=== PATIENT | female | born 1960 | race Caucasian/White ===

== ENCOUNTER 2016-07-06 20:10 | Inpatient (IN) | payer OTHER ==
[~2016-07-06] VITALS: Ht 170.2 cm; Wt 62.0 kg
[~2016-07-06 20:10] MED LIST: ALPRAZOLAM0.25 M2 PO; ANUSOL-HC21 GM PR; ATIVAN0.5 MG PO; AUGMENTIN875 MG PO; BENTYL20 MG PO; CARAFATE1 GM PO; CHILDREN'S160 MG/15 PO; CHILDREN'S160 MG/21 PO; CIPRO250 MG/5 M PO; CIPRO500 MG PO; CIPROFLOXA250 MG/5 M PO; DIOVAN40 MG PO; ENDOCET 5-3251 EACH PO; FLAGYL500 MG PO; FLORASTOR250 M1 PO; FLORASTOR250 MG PO; GOLYTELY SOLU4000 ML PO; LISINOPRIL10 MG PO; MEGACE 40 MG40 MG/ML PO; MIRALAX255 GM PO; MORPHINE CON20 MG/M1 PO; NICOTINE PATCH1 EAC2 TD; ONDANSETRON ODT4 MG PO; PRAVASTATIN SOD20 MG PO; PRAVASTATIN SOD40 MG PO; PREVACID SOLUTA30 MG PO; PROMETHAZINE HC25 M1 PO; REGLAN10 MG PO; VANCOCIN 250 M250 MG PO; VANCOMYCIN125 MG/2.5 PO; ZANTAC300 MG PO; ZOFRAN ODT4 MG PO; ZOFRAN4 MG PO
[2016-07-06 20:35] LABS: HEMATOCRIT 39.6 % (36.0-46.0); MCH 30.2 PG (29.0-34.0); MCHC 33.8 G/DL (30.0-36.0); MCV 89.4 FL (83-99); MEAN PLAT.VOLUME 10.7 uM^3 (9.5-12.4); PLATELET COUNT 139 K/uL (156-360); RBC DIS.WIDTH-CV 11.8 % (11.8-14.6); RBC DIS.WIDTH-SD 38.4 % (39-53); RED BLOOD COUNT 4.43 M/uL (3.80-5.20); WHITE BLOOD COUNT 8.4 K/uL (4.1-10.2)
[2016-07-06 20:47] LABS: CHLORIDE 104 mEq/L (99-109); POTASSIUM 3.7 mEq/L (3.7-5.4); SODIUM 138 mEq/L (136-147)
[2016-07-06 20:49] LABS: GLUCOSE 102 mg/dL (70-99)
[2016-07-06 20:50] LABS: ANION GAP 10 MEQ/L (2-14)
[2016-07-06 20:51] LABS: TOTAL BILIRUBIN 0.9 mg/dL (0.0-1.0)
[2016-07-06 20:52] LABS: ALKALINE PHOSPHATASE 65 IU/L (3-129)
[2016-07-06 20:53] LABS: GFR ESTIMATE (CALCULATED) > 59 mL/min/
[2016-07-06 20:54] LABS: UREA NITROGEN (BUN) 5 mg/dL (9-23)
[2016-07-06 22:05] LABS: PROTHROMBIN TIME 10.1 (9.2-11.2); PTT 36.4 (25-32)
[2016-07-06 22:15] LABS: ADD MIUA? YES; BILIRUBIN NEGATIVE; BLOOD MODERATE; COLOR STRAW ((YELLOW)); GLUCOSE (STRIP) NEGATIVE; KETONES 5; LEUKOCYTES TRACE; NITRITE NEGATIVE; PROTEIN (STRIP) NEGATIVE; SPECIFIC GRAVITY 1.004 (1.000-1.030); UROBILINOGEN 0.2 MG/DL (0.2-1.0)
[2016-07-06 22:30] LABS: BACTERIA RARE /HPF; EPITHELIAL CELLS NONE SEEN /HPF; MUCUS TRACE /LPF; RED BLOOD CELLS 0-5 /HPF (0-5); UCUL ADDED? NO; WHITE BLOOD CELLS 0-5 /HPF (0-5)
[2016-07-07] MEDS ORDERED: CRESTOR5 MG PO (00:40)
[2016-07-07] MEDS ORDERED: MIRALAX255 GM PO (00:40)
[2016-07-07 04:23] VITALS: BP 117/56
[2016-07-07 07:05] VITALS: BP 99/57
[2016-07-07 08:13] LABS: HDL CHOLESTEROL 38 MG/DL (Desirable>=50); LDL CHOLESTEROL 100 mg/dL (Desirable<100); LIPASE 6 U/L (1.0-51.0); NON-HDL CHOLESTEROL 113 mg/dL (Desirable<160); TOTAL CHOLESTEROL 151 mg/dL (Desirable<200); TRIGLYCERIDES 65 MG/DL (Normal: <150)
[2016-07-07 11:15] VITALS: BP 101/67
[2016-07-07 12:35] VITALS: BP 178/94
[2016-07-07 12:43] LABS: C DIFF TOXIN POSITIVE (NEGATIVE); PROBE CHECK PASS
[2016-07-07 12:46] LABS: INTERNAL CONTROL VALID? YES
[2016-07-07 16:30] VITALS: BP 104/62
[2016-07-07 19:00] VITALS: BP 108/59
[2016-07-08 00:38] VITALS: BP 121/67
[2016-07-08 03:15] VITALS: BP 148/91
[2016-07-08 04:55] VITALS: BP 122/68
[2016-07-08 07:00] VITALS: BP 121/58
[2016-07-08 07:20] LABS: HEMATOCRIT 34.3 % (36.0-46.0); MCHC 32.9 G/DL (30.0-36.0); MEAN PLAT.VOLUME 11.1 uM^3 (9.5-12.4); PLATELET COUNT 125 K/uL (156-360); RBC DIS.WIDTH-CV 11.9 % (11.8-14.6); RBC DIS.WIDTH-SD 39.4 % (39-53); RED BLOOD COUNT 3.77 M/uL (3.80-5.20)
[2016-07-08 07:33] LABS: ALKALINE PHOSPHATASE 49 IU/L (3-129); ANION GAP 7 MEQ/L (2-14); CHLORIDE 107 MEQ/L (99-109); GFR ESTIMATE (CALCULATED) > 59 mL/min/; GLUCOSE 73 mg/dL (70-99); POTASSIUM 3.8 MEQ/L (3.7-5.4); SAMPLE HEMOLYSIS CHECK 0; SAMPLE ICTERIC CHECK 0; SAMPLE LIPEMIA CHECK 0; SODIUM 139 MEQ/L (136-147); TOTAL BILIRUBIN 0.6 MG/DL (0.0-1.0); UREA NITROGEN (BUN) 7 mg/dL (9-23)
[2016-07-08 15:35] VITALS: BP 102/62
[2016-07-08 23:45] VITALS: BP 132/62
[2016-07-09 08:08] LABS: HEMATOCRIT 35.7 % (36.0-46.0); MCH 30.3 PG (29.0-34.0); MCHC 33.9 G/DL (30.0-36.0); MCV 89.5 FL (83-99); PLATELET COUNT 120 K/uL (156-360); RBC DIS.WIDTH-CV 11.6 % (11.8-14.6); RBC DIS.WIDTH-SD 37.6 % (39-53); RED BLOOD COUNT 3.99 M/uL (3.80-5.20); WHITE BLOOD COUNT 6.4 K/uL (4.1-10.2)
[2016-07-09 08:20] LABS: CHLORIDE 104 mEq/L (99-109); POTASSIUM 3.4 mEq/L (3.7-5.4); SODIUM 140 mEq/L (136-147)
[2016-07-09 08:23] LABS: ANION GAP 10 MEQ/L (2-14); GLUCOSE 102 mg/dL (70-99)
[2016-07-09 08:25] LABS: GFR ESTIMATE (CALCULATED) > 59 mL/min/
[2016-07-09 08:26] LABS: UREA NITROGEN (BUN) 4 mg/dL (9-23)
[2016-07-09 08:44] VITALS: BP 127/69
[2016-07-09 16:47] VITALS: BP 139/63
[2016-07-10 02:46] VITALS: BP 132/68
[2016-07-10 07:46] VITALS: BP 134/62
[2016-07-10 10:54] LABS: ANION GAP 10 MEQ/L (2-14); CHLORIDE 102 MEQ/L (99-109); GFR ESTIMATE (CALCULATED) > 59 mL/min/; GLUCOSE 100 mg/dL (70-99); POTASSIUM 3.2 MEQ/L (3.7-5.4); SAMPLE HEMOLYSIS CHECK 0; SAMPLE ICTERIC CHECK 0; SAMPLE LIPEMIA CHECK 0; SODIUM 138 MEQ/L (136-147); UREA NITROGEN (BUN) 3 mg/dL (9-23)
[2016-07-10 15:35] VITALS: BP 130/61
[2016-07-11 00:53] VITALS: BP 128/78
[2016-07-11 07:38] VITALS: BP 108/58
[2016-07-11 08:02] LABS: HEMATOCRIT 32.7 % (36.0-46.0); MCH 31.1 PG (29.0-34.0); MCHC 34.9 G/DL (30.0-36.0); MCV 89.3 FL (83-99); MEAN PLAT.VOLUME 10.6 uM^3 (9.5-12.4); PLATELET COUNT 111 K/uL (156-360); RBC DIS.WIDTH-CV 11.8 % (11.8-14.6); RED BLOOD COUNT 3.66 M/uL (3.80-5.20)
[2016-07-11 08:03] LABS: WHITE BLOOD COUNT 3.2 K/uL (4.1-10.2)
[2016-07-11 08:38] LABS: ANION GAP 6 MEQ/L (2-14); CHLORIDE 106 MEQ/L (99-109); GFR ESTIMATE (CALCULATED) > 59 mL/min/; GLUCOSE 120 mg/dL (70-99); POTASSIUM 3.2 MEQ/L (3.7-5.4); SAMPLE HEMOLYSIS CHECK 0; SAMPLE ICTERIC CHECK 0; SAMPLE LIPEMIA CHECK 0; SODIUM 140 MEQ/L (136-147); UREA NITROGEN (BUN) 2 mg/dL (9-23)
[2016-07-11 16:39] VITALS: BP 100/62
[2016-07-11 23:11] VITALS: BP 147/70
[2016-07-12 06:44] LABS: HEMATOCRIT 33.1 % (36.0-46.0); MCH 30.2 PG (29.0-34.0); MCHC 33.8 G/DL (30.0-36.0); MCV 89.2 FL (83-99); MEAN PLAT.VOLUME 10.3 uM^3 (9.5-12.4); PLATELET COUNT 117 K/uL (156-360); RBC DIS.WIDTH-CV 11.7 % (11.8-14.6); RED BLOOD COUNT 3.71 M/uL (3.80-5.20)
[2016-07-12 07:08] VITALS: BP 134/62
[2016-07-12 07:13] LABS: ANION GAP 7 MEQ/L (2-14); CHLORIDE 108 MEQ/L (99-109); GFR ESTIMATE (CALCULATED) > 59 mL/min/; GLUCOSE 107 mg/dL (70-99); POTASSIUM 3.4 MEQ/L (3.7-5.4); SAMPLE HEMOLYSIS CHECK 0; SAMPLE ICTERIC CHECK 0; SAMPLE LIPEMIA CHECK 0; SODIUM 143 MEQ/L (136-147); UREA NITROGEN (BUN) 2 mg/dL (9-23)
[2016-07-12] MEDS ORDERED: FLAGYL500 MG PO (14:23)
[2016-07-12] MEDS ORDERED: VANCOMYCIN125 MG/2.5 PO (14:25)
[2016-07-12] MEDS ORDERED: ZOFRAN4 MG PO (14:27)
[2016-07-12] MEDS ORDERED: REGLAN10 MG PO (14:27)
[2016-07-12 14:30] VITALS: BP 120/78
[2016-07-12] MEDS ORDERED: POTASSIUM20 MEQ/11 PO (14:31)
== END 2016-07-12 15:40 | disposition home or self-care (01) | DRG 392 ==
LOC: EME 20:10 → 2EAST 07-07 02:30 → EDOF 07-07 02:30 → 2EAST 07-07 04:09
PROVIDERS: Emergency Medicine; Internal Medicine; Nurse Practitioner Adult Health
DX: K57.92 Diverticulitis of intestine, part unspecified, without perforation or abscess without bleeding (principal); A04.7 Enterocolitis due to Clostridium difficile; F41.9 Anxiety disorder, unspecified; J44.9 Chronic obstructive pulmonary disease, unspecified; I10 Essential (primary) hypertension; E78.5 Hyperlipidemia, unspecified; F17.210 Nicotine dependence, cigarettes, uncomplicated; D69.6 Thrombocytopenia, unspecified; Z88.6 Allergy status to analgesic agent; Z71.6 Tobacco abuse counseling; N39.0 Urinary tract infection, site not specified; R10.9 Unspecified abdominal pain; R19.5 Other fecal abnormalities; R19.7 Diarrhea, unspecified
CPT/HCPCS: 74176; 74177; 76705; 80048; 80053; 80061; 81003; 83605; 83630; 83690; 85027; 85610; 85730; 86900; 86901; 87077; 87086; 87186; 87493; 99202; 99281; 99285; J0696; J2060; J2270; J2405; J2543; J2765; J7030; J7042; J7050; S0028; S0030

== ENCOUNTER 2016-08-22 22:27 | Inpatient (IN) | payer OTHER ==
[~2016-08-22] VITALS: Ht 170.2 cm; Wt 60.4 kg
[~2016-08-22 22:27] MED LIST changes: +CRESTOR5 MG PO; +POTASSIUM20 MEQ/11 PO
[2016-08-23] LABS: HEMATOCRIT 40.7 % (36.0-46.0); MCH 30.3 PG (29.0-34.0); MCHC 34.9 G/DL (30.0-36.0); MEAN PLAT.VOLUME 10.9 uM^3 (9.5-12.4); PLATELET COUNT 119 K/uL (156-360); RBC DIS.WIDTH-CV 12.1 % (11.8-14.6); RBC DIS.WIDTH-SD 38.5 % (39-53); RED BLOOD COUNT 4.68 M/uL (3.80-5.20); WHITE BLOOD COUNT 8.8 K/uL (4.1-10.2)
[2016-08-23 00:10] LABS: CHLORIDE 99 mEq/L (99-109); POTASSIUM 3.7 mEq/L (3.7-5.4); SODIUM 132 mEq/L (136-147)
[2016-08-23 00:13] LABS: GLUCOSE 134 mg/dL (70-99)
[2016-08-23 00:14] LABS: ANION GAP 9 MEQ/L (2-14); TOTAL BILIRUBIN 1.2 mg/dL (0.0-1.0)
[2016-08-23 00:16] LABS: ALKALINE PHOSPHATASE 53 IU/L (3-129); GFR ESTIMATE (CALCULATED) > 59 mL/min/
[2016-08-23 00:17] LABS: UREA NITROGEN (BUN) 7 mg/dL (9-23)
[2016-08-23 01:02] LABS: ADD MIUA? YES; BILIRUBIN NEGATIVE; BLOOD MODERATE; COLOR AMBER ((YELLOW)); GLUCOSE (STRIP) NEGATIVE; KETONES 5; LEUKOCYTES NEGATIVE; NITRITE NEGATIVE; PROTEIN (STRIP) 30; SPECIFIC GRAVITY 1.021 (1.000-1.030); UROBILINOGEN 0.2 MG/DL (0.2-1.0)
[2016-08-23 01:11] LABS: BACTERIA RARE /HPF; EPITHELIAL CELLS RARE /HPF; HYALINE CASTS 0-5 /LPF; MUCUS TRACE /LPF; RED BLOOD CELLS 20-30 /HPF (0-5); UCUL ADDED? NO; WHITE BLOOD CELLS 0-5 /HPF (0-5)
[2016-08-23 05:09] VITALS: BP 111/56
[2016-08-23 07:30] VITALS: BP 122/54
[2016-08-23 10:05] LABS: C DIFF TOXIN POSITIVE (NEGATIVE)
[2016-08-23 10:15] LABS: PROBE CHECK PASS
[2016-08-23 12:11] VITALS: BP 115/58
[2016-08-23 16:57] VITALS: BP 115/66
[2016-08-23 19:22] VITALS: BP 112/63
[2016-08-23 23:40] VITALS: BP 103/59
[2016-08-24 02:52] VITALS: BP 125/66
[2016-08-24 07:05] VITALS: BP 121/63
[2016-08-24 07:17] LABS: INTER. NORMALIZED RATIO 1.1; PROTHROMBIN TIME 10.7 (9.2-11.2); PTT 33.5 (25-32)
[2016-08-24 07:25] LABS: HEMATOCRIT 37.3 % (36.0-46.0); MCH 29.2 PG (29.0-34.0); MCV 88.6 FL (83-99); MEAN PLAT.VOLUME 10.9 uM^3 (9.5-12.4); PLATELET COUNT 114 K/uL (156-360); RBC DIS.WIDTH-CV 12.4 % (11.8-14.6); RBC DIS.WIDTH-SD 40.5 % (39-53); RED BLOOD COUNT 4.21 M/uL (3.80-5.20); WHITE BLOOD COUNT 3.6 K/uL (4.1-10.2)
[2016-08-24 07:27] LABS: ANION GAP 7 MEQ/L (2-14); CHLORIDE 104 MEQ/L (99-109); GFR ESTIMATE (CALCULATED) > 59 mL/min/; GLUCOSE 110 mg/dL (70-99); MAGNESIUM 1.8 mg/dl (1.3-2.7); POTASSIUM 3.2 MEQ/L (3.7-5.4); SAMPLE HEMOLYSIS CHECK 0; SAMPLE ICTERIC CHECK 0; SAMPLE LIPEMIA CHECK 0; SODIUM 137 MEQ/L (136-147); UREA NITROGEN (BUN) 9 mg/dL (9-23)
[2016-08-24 08:40] LABS: ABS NEUTROPHIL COUNT 2.5; BAND NEUTROPHILS 36.1 % (0-8.0); BASOPHILS 0.9 %; EOSINOPHIL ABS CT 0.1; EOSINOPHILS 2.7 % (0-5.0); INSTRUMENT ABS NEUTROPHIL CT 2.4 K/uL; LYMPHOCYTES 20.7 % (15.0-45.0); MYELOCYTES 1.8 %; NUCLEATED RBC'S 0.9; PLAT.SUFFICIENCY DECREASED; POIKILOCYTOSIS 1+; SEG.NEUTROPHILS 32.4 % (46.0-76.0)
[2016-08-24 11:25] VITALS: BP 115/61
[2016-08-24 15:45] VITALS: BP 122/67
[2016-08-24 15:49] LABS: ADD MIUA? YES; BILIRUBIN NEGATIVE; BLOOD LARGE; COLOR YELLOW ((YELLOW)); GLUCOSE (STRIP) NEGATIVE; KETONES NEGATIVE; LEUKOCYTES NEGATIVE; NITRITE NEGATIVE; PROTEIN (STRIP) NEGATIVE; SPECIFIC GRAVITY 1.003 (1.000-1.030); UROBILINOGEN 0.2 MG/DL (0.2-1.0)
[2016-08-24 15:56] LABS: BACTERIA RARE /HPF; EPITHELIAL CELLS RARE /HPF; HYALINE CASTS 0-5 /LPF; MUCUS TRACE /LPF; RED BLOOD CELLS 0-5 /HPF (0-5); UCUL ADDED? NO; WHITE BLOOD CELLS 0-5 /HPF (0-5)
[2016-08-24 23:10] VITALS: BP 116/67
[2016-08-25 08:05] LABS: HEMATOCRIT 35.2 % (36.0-46.0); MCH 29.9 PG (29.0-34.0); MCHC 33.8 G/DL (30.0-36.0); MCV 88.4 FL (83-99); MEAN PLAT.VOLUME 10.9 uM^3 (9.5-12.4); PLATELET COUNT 122 K/uL (156-360); RBC DIS.WIDTH-CV 12.4 % (11.8-14.6); RBC DIS.WIDTH-SD 40.9 % (39-53); RED BLOOD COUNT 3.98 M/uL (3.80-5.20); WHITE BLOOD COUNT 3.5 K/uL (4.1-10.2)
[2016-08-25 08:09] VITALS: BP 122/67
[2016-08-25 08:38] LABS: ANION GAP 8 MEQ/L (2-14); CHLORIDE 108 MEQ/L (99-109); GFR ESTIMATE (CALCULATED) > 59 mL/min/; GLUCOSE 131 mg/dL (70-99); MAGNESIUM 1.8 mg/dl (1.3-2.7); POTASSIUM 3.2 MEQ/L (3.7-5.4); SAMPLE HEMOLYSIS CHECK 0; SAMPLE ICTERIC CHECK 0; SAMPLE LIPEMIA CHECK 0; SODIUM 142 MEQ/L (136-147); UREA NITROGEN (BUN) 4 mg/dL (9-23)
[2016-08-25 08:46] LABS: ABS NEUTROPHIL COUNT 2.3; EOSINOPHIL ABS CT 0; INSTRUMENT ABS NEUTROPHIL CT 2.3 K/uL; LYMPHOCYTES 25.6 % (15.0-45.0); PLAT.SUFFICIENCY DECREASED; POIKILOCYTOSIS 1+
[2016-08-25 09:02] LABS: SEG.NEUTROPHILS 58.4 % (46.0-76.0)
[2016-08-25 11:33] VITALS: BP 120/67
[2016-08-25 16:10] VITALS: BP 123/69
[2016-08-26 00:22] VITALS: BP 127/62
[2016-08-26 06:40] VITALS: BP 114/76
[2016-08-26 06:48] LABS: EOSINOPHIL (%) 2.5 % (0-5); EOSINOPHIL COUNT 0.1 K/uL (0-0.3); HEMATOCRIT 34.6 % (36.0-46.0); INSTRUMENT ABS NEUTROPHIL CT 2.1 K/uL; LYMPHOCYTE COUNT 1.4 K/uL (1.0-2.8); MCH 29.5 PG (29.0-34.0); MCHC 34.1 G/DL (30.0-36.0); MCV 86.5 FL (83-99); MEAN PLAT.VOLUME 10.8 uM^3 (9.5-12.4); MONOCYTE (%) 8.2 % (3-12); MONOCYTE COUNT 0.3 K/uL (0-0.8); NEUTROPHIL (%) 51.8 % (45-76); NEUTROPHIL COUNT 2.1 K/uL (1.8-6.4); PLATELET COUNT 139 K/uL (156-360); RBC DIS.WIDTH-CV 12.1 % (11.8-14.6)
[2016-08-26 07:19] LABS: ANION GAP 8 MEQ/L (2-14); CHLORIDE 105 MEQ/L (99-109); GFR ESTIMATE (CALCULATED) > 59 mL/min/; MAGNESIUM 1.8 mg/dl (1.3-2.7); POTASSIUM 3.1 MEQ/L (3.7-5.4); SAMPLE HEMOLYSIS CHECK 0; SAMPLE ICTERIC CHECK 0; SAMPLE LIPEMIA CHECK 0; SODIUM 140 MEQ/L (136-147); UREA NITROGEN (BUN) 3 mg/dL (9-23)
[2016-08-26 07:26] LABS: GLUCOSE 95 mg/dL (70-99)
[2016-08-26 10:30] VITALS: BP 135/69
[2016-08-26] MEDS ORDERED: VANCOMYCIN HCL125 MG PO (14:19)
[2016-08-26] MEDS ORDERED: NICOTINE PATCH1 EAC2 TD (14:19)
[2016-08-26] MEDS ORDERED: MORPHINE S10 MG/5 ML PO (14:19)
[2016-08-26] MEDS ORDERED: ZOFRAN ODT4 MG PO ×2 (14:19→15:50)
[2016-08-26] MEDS ORDERED: FLORASTORKIDS250 MG PO (14:19)
[2016-08-26] MEDS ORDERED: BENTYL20 MG PO (14:19)
[2016-08-26] MEDS ORDERED: VANCOMYCIN125 MG/2.5 PO (15:49)
== END 2016-08-26 16:16 | disposition home or self-care (01) | DRG 372 ==
LOC: EME 22:27 → 2EAST 08-23 03:02 → EDOF 08-23 03:02 → 2EAST 08-23 04:46
PROVIDERS: Emergency Medicine; Internal Medicine; Physician Assistant Medical; Specialist
DX: A04.7 Enterocolitis due to Clostridium difficile (principal); E87.1 Hypo-osmolality and hyponatremia; F33.9 Major depressive disorder, recurrent, unspecified; D69.6 Thrombocytopenia, unspecified; D72.825 Bandemia; E78.5 Hyperlipidemia, unspecified; E86.0 Dehydration; E87.6 Hypokalemia; E83.39 Other disorders of phosphorus metabolism; F17.210 Nicotine dependence, cigarettes, uncomplicated; I10 Essential (primary) hypertension; J44.9 Chronic obstructive pulmonary disease, unspecified; K21.9 Gastro-esophageal reflux disease without esophagitis; K76.0 Fatty (change of) liver, not elsewhere classified; K57.30 Diverticulosis of large intestine without perforation or abscess without bleeding; K80.20 Calculus of gallbladder without cholecystitis without obstruction; Z86.73 Personal history of transient ischemic attack (TIA), and cerebral infarction without residual deficits; Z80.0 Family history of malignant neoplasm of digestive organs; Z80.1 Family history of malignant neoplasm of trachea, bronchus and lung
CPT/HCPCS: 74176; 74177; 80048; 80053; 81003; 83735; 84100; 85025; 85027; 85610; 85730; 87493; 99281; 99284; J2270; J2405; J2765; J7030; J7050; S0028; S0030